=== PATIENT | female | born 2000 | race Caucasian/White ===

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

== ENCOUNTER 2018-04-19 17:13 | Emergency (ER) | payer OTHER ==
[~2018-04-19] VITALS: Ht 167.6 cm; Wt 75.0 kg
[~2018-04-19 17:13] MED LIST: ALEV220C2 PO; BACT800T5 PO; NORCOTAB PO
[2018-04-19] MEDS ORDERED: SUDA30TA8 PO (19:26)
[2018-04-19] MEDS ORDERED: FLON1SPR NARES (19:26)
[2018-04-19] MEDS ORDERED: MUCI600T37 PO (19:26)
[2018-04-19 19:42] VITALS: BP 127/85
== END 2018-04-19 19:42 | disposition home or self-care (01) ==
LOC: M ED 17:13
DX: H65.03 Acute serous otitis media, bilateral (principal); J30.9 Allergic rhinitis, unspecified

== ENCOUNTER 2018-07-29 13:22 | Emergency (ER) | payer OTHER ==
[~2018-07-29] VITALS: Ht 165.1 cm; Wt 72.7 kg
[~2018-07-29 13:22] MED LIST changes: +FLON1SPR NARES; +HYDR-3715 PO; +MUCI600T37 PO; -NORCOTAB PO; +SUDA30TA8 PO
--- NOTE | 2018-07-29 14:51 | REP ---
Right hip: Single view. History: Right hip pain. Findings: AP view of the right hip is compared to the frog-leg view obtained as part of the femur series. Bones, joints, and soft tissues are radiographically unremarkable. Femoral head is smooth and rounded and hip joint spaces preserved. Impression: Negative radiograph of the right hip. Electronically Signed by Gurdeep Palomino MD 07/29/2018 02:43 P
--- NOTE | 2018-07-29 14:59 | REP ---
Right femur: Three views. History: Right hip pain. Findings: AP and lateral views of the distal femur and AP and frog-leg views of the proximal femur are presented. These demonstrate normal bones, joints, and soft tissues. Impression: Normal radiographs of the right femur. Electronically Signed by Gurdeep Palomino MD 07/29/2018 08:06 P
[2018-07-29] MEDS ORDERED: IBUP-359 PO (15:00)
[2018-07-29 15:20] VITALS: BP 127/79
== END 2018-07-29 15:20 | disposition home or self-care (01) ==
LOC: M ED 13:22
DX: S70.01XA Contusion of right hip, initial encounter (principal); S80.01XA Contusion of right knee, initial encounter; W01.0XXA Fall on same level from slipping, tripping and stumbling without subsequent striking against object, initial encounter; Y92.512 Supermarket, store or market as the place of occurrence of the external cause; Y99.0 Civilian activity done for income or pay

== ENCOUNTER 2018-10-10 18:14 | Emergency (ER) | payer OTHER, SELFPAY ==
[~2018-10-10] VITALS: Ht 165.1 cm; Wt 77.3 kg
[~2018-10-10 18:14] MED LIST changes: +IBUP-359 PO
[2018-10-10] MEDS ORDERED: ADVI100T PO (18:20)
[2018-10-10 20:27] VITALS: BP 139/90
== END 2018-10-10 20:32 | disposition home or self-care (01) ==
LOC: M ED 18:14
DX: S09.90XA Unspecified injury of head, initial encounter (principal); W10.8XXA Fall (on) (from) other stairs and steps, initial encounter; Y92.89 Other specified places as the place of occurrence of the external cause; F17.200 Nicotine dependence, unspecified, uncomplicated; Z79.1 Long term (current) use of non-steroidal anti-inflammatories (NSAID)

== ENCOUNTER 2019-04-13 22:41 | Emergency (ER) | payer SELFPAY ==
[~2019-04-13] VITALS: Ht 165.1 cm; Wt 77.3 kg
[2019-04-13 22:41] VITALS: BP 144/85
[~2019-04-13 22:41] MED LIST changes: +ADVI100T PO
== END 2019-04-14 00:12 | disposition left against medical advice (07) ==
LOC: M ED 22:41
DX: Z53.21 Procedure and treatment not carried out due to patient leaving prior to being seen by health care provider (principal)

== ENCOUNTER 2019-05-21 22:09 | Emergency (ER) | payer SELFPAY ==
[~2019-05-21] VITALS: Ht 167.6 cm; Wt 83.5 kg
[2019-05-21 22:10] VITALS: BP 134/83
[2019-05-21] MEDS ORDERED: IBUPROFEN 600 MG TAB PO ONE (22:45)
[2019-05-21 23:00] LABS: INFLUENZA A AMPLIFICATION NEGATIVE (NEGATIVE); INFLUENZA B AMPLIFICATION NEGATIVE (NEGATIVE)
== END 2019-05-21 23:25 | disposition home or self-care (01) ==
LOC: M ED 22:09
DX: J02.9 Acute pharyngitis, unspecified (principal); B34.9 Viral infection, unspecified; Z20.89 Contact with and (suspected) exposure to other communicable diseases

== ENCOUNTER 2019-06-14 21:44 | Emergency (ER) | payer OTHER, SELFPAY ==
[~2019-06-14] VITALS: Ht 167.6 cm; Wt 84.5 kg
[2019-06-14 22:47] LABS: INFLUENZA A AMPLIFICATION NEGATIVE (NEGATIVE); INFLUENZA B AMPLIFICATION POSITIVE (NEGATIVE)
[2019-06-15] MEDS ORDERED: ACETAMINOPHEN 325 MG TAB PO ONE (01:15)
[2019-06-15] MEDS ORDERED: IBUPROFEN 600 MG TAB PO ONE (01:15)
[2019-06-15 01:16] VITALS: BP 140/87
== END 2019-06-15 01:46 | disposition home or self-care (01) ==
LOC: M ED 21:44
DX: J10.1 Influenza due to other identified influenza virus with other respiratory manifestations (principal); F17.200 Nicotine dependence, unspecified, uncomplicated

== ENCOUNTER → 2020-09-11 | Outpatient (CLI) | payer SELFPAY | LOC: M LABSMTC 09:56 | PROVIDERS: ATTEND Pediatrics | DX: Z20.822 Contact with and (suspected) exposure to COVID-19 (principal) ==

== ENCOUNTER → 2020-11-19 | Outpatient (REF) | payer OTHER | LOC: M SFHCPLAZ 13:17 | PROVIDERS: ATTEND Family Medicine | DX: Z12.4 Encounter for screening for malignant neoplasm of cervix (principal) ==

== ENCOUNTER 2021-08-30 20:54 | Emergency (ER) | payer OTHER ==
[~2021-08-30] VITALS: Ht 170.2 cm; Wt 75.0 kg
[2021-08-30 20:55] VITALS: BP 136/96
[2021-08-30] MEDS ORDERED: FLUO20CA22 (21:02)
[2021-08-30] MEDS ORDERED: BUPR150T12 (21:02)
== END 2021-08-31 01:48 | disposition home or self-care (01) ==
LOC: M ED 20:54
DX: S93.402A Sprain of unspecified ligament of left ankle, initial encounter (principal); X50.1XXA Overexertion from prolonged static or awkward postures, initial encounter; Y92.89 Other specified places as the place of occurrence of the external cause; Y93.9 Activity, unspecified; Y99.9 Unspecified external cause status; F17.200 Nicotine dependence, unspecified, uncomplicated

== ENCOUNTER 2022-10-29 10:56 | Emergency (ER) | payer OTHER ==
[~2022-10-29] VITALS: Ht 167.6 cm; Wt 92.2 kg
[~2022-10-29 10:56] MED LIST changes: +BUPR150T12; +FLUO20CA22
[2022-10-29 11:47] LABS: AMORPHOUS SEDIMENT SMALL (NEGATIVE); APPEARANCE, URINE CLOUDY (CLEAR); BACTERIA, URINE AUTO NEGATIVE (NEGATIVE); BILIRUBIN, URINE AUTO NEGATIVE (NEGATIVE); BLOOD, URINE BLOOD NEGATIVE (NEGATIVE); COLOR, URINE AMBER (YELLOW); GLUCOSE, URINE (UA) AUTO NEGATIVE (NEGATIVE); KETONE, URINE AUTO NEGATIVE (NEGATIVE); LEUKOCYTE ESTERASE, URINE AUTO 1+ (NEGATIVE); MUCUS, URINE SMALL (NEGATIVE); NITRITE, URINE AUTO NEGATIVE (NEGATIVE); PROTEIN, URINE AUTO 1+ mg/dL (NEGATIVE); RBC, URINE AUTO 4 /HPF (0-3); SPECIFIC GRAVITY URINE AUTO 1.028 (1.002-1.035); SQUAMOUS EPITHELIAL CELL UR AU 18 /HPF (0-6); WBC, URINE AUTO 11 /HPF (0-3)
[2022-10-29 12:08] LABS: HEMATOCRIT 44.9 % (36.0-47.0); HEMOGLOBIN 15.2 g/dl (12.0-15.5); MEAN CORPUSCULAR HEMOGLOBIN 31.2 pg (27.0-33.0); MEAN CORPUSCULAR HGB CONC 33.9 g/dl (32.0-36.5); MEAN CORPUSCULAR VOLUME 92.2 fl (80.0-96.0); PLATELET COUNT, AUTOMATED 227 10^3/uL (150-450); RED BLOOD COUNT 4.87 10^6/uL (4.00-5.40); WHITE BLOOD COUNT 8.5 10^3/uL (4.0-10.0)
[2022-10-29 12:41] LABS: BLOOD UREA NITROGEN 7 MG/DL (9-23); CALCIUM LEVEL 8.8 MG/DL (8.5-10.1); CARBON DIOXIDE LEVEL 25 MMOL/L (20-31); CHLORIDE LEVEL 107 MMOL/L (98-107); CREATININE FOR GFR 0.57 MG/DL (0.55-1.30); GLOMERULAR FILTRATION RATE > 60.0 (>60); GLUCOSE, FASTING 100 MG/DL (60-100); POTASSIUM SERUM 4.1 MMOL/L (3.5-5.1); SODIUM LEVEL 139 MMOL/L (136-145)
[2022-10-29 12:49] LABS: HCG, SERUM QUALITATIVE POSITIVE (NEGATIVE)
[2022-10-29 13:38] LABS: HCG, SERUM QUANTITATIVE 63148.3 MIU/ML (<4.2)
[2022-10-29] MEDS ORDERED: ONDA4TAB6 PO (14:42)
[2022-10-29 15:04] VITALS: BP 140/82; TEMP 98.8; O2SAT 96
== END 2022-10-29 15:06 | disposition home or self-care (01) ==
LOC: M ED 10:56
DX: O26.891 Other specified pregnancy related conditions, first trimester (principal); Z3A.01 Less than 8 weeks gestation of pregnancy; O99.331 Smoking (tobacco) complicating pregnancy, first trimester

== ENCOUNTER → 2022-12-02 | Outpatient (CLI) | payer OTHER ==
[~2022-12-02] MED LIST changes: +ONDA4TAB6 PO
[2022-12-02 17:27] LABS: HEMATOCRIT 44.7 % (36.0-47.0); HEMOGLOBIN 14.9 g/dl (12.0-15.5); MEAN CORPUSCULAR HEMOGLOBIN 31.4 pg (27.0-33.0); MEAN CORPUSCULAR HGB CONC 33.3 g/dl (32.0-36.5); MEAN CORPUSCULAR VOLUME 94.1 fl (80.0-96.0); PLATELET COUNT, AUTOMATED 255 10^3/uL (150-450); RED BLOOD COUNT 4.75 10^6/uL (4.00-5.40); WHITE BLOOD COUNT 9.9 10^3/uL (4.0-10.0)
[2022-12-02 18:18] LABS: HIV 1&2 SCREEN NEGATIVE (NEGATIVE)
[2022-12-02 18:27] LABS: HEPATITIS C VIRUS ABY INDEX 0.13 INDEX (<0.8)
[2022-12-02 19:32] LABS: GC DNA AMPLIFICATION NEGATIVE (NEGATIVE)
== END ==
LOC: M PLALAB 16:10
PROVIDERS: ATTEND Advanced Practice Midwife
DX: Z34.01 Encounter for supervision of normal first pregnancy, first trimester (principal)

== ENCOUNTER → 2022-12-31 | Outpatient (CLI) | payer OTHER | LOC: M WHC 14:22 | PROVIDERS: ATTEND Obstetrics & Gynecology | DX: Z34.92 Encounter for supervision of normal pregnancy, unspecified, second trimester (principal); Z53.9 Procedure and treatment not carried out, unspecified reason ==

== ENCOUNTER → 2022-12-31 | Outpatient (CLI) | payer OTHER | LOC: M PLALAB 14:29 | PROVIDERS: ATTEND Obstetrics & Gynecology | DX: Z34.92 Encounter for supervision of normal pregnancy, unspecified, second trimester (principal); Z3A.16 16 weeks gestation of pregnancy ==

== ENCOUNTER → 2023-01-30 | Outpatient (CLI) | payer OTHER | LOC: M RAD 13:28 | PROVIDERS: ATTEND Physician Assistant Medical | DX: S99.911A Unspecified injury of right ankle, initial encounter (principal); X58.XXXA Exposure to other specified factors, initial encounter; Y92.9 Unspecified place or not applicable; Y93.9 Activity, unspecified; Y99.9 Unspecified external cause status ==

== ENCOUNTER → 2023-02-02 | Outpatient (CLI) | payer OTHER | LOC: M WHC 13:09 | PROVIDERS: ATTEND Obstetrics & Gynecology | DX: Z34.92 Encounter for supervision of normal pregnancy, unspecified, second trimester (principal); Z3A.20 20 weeks gestation of pregnancy ==

== ENCOUNTER → 2023-04-14 | Outpatient (CLI) | payer OTHER | LOC: M LAB 07:49 | PROVIDERS: ATTEND Obstetrics & Gynecology | DX: R73.09 Other abnormal glucose (principal) ==

== ENCOUNTER → 2023-05-21 | Outpatient (CLI) | payer OTHER | LOC: M WHC 08:42 | PROVIDERS: ATTEND Obstetrics & Gynecology | DX: O24.415 Gestational diabetes mellitus in pregnancy, controlled by oral hypoglycemic drugs (principal); Z3A.36 36 weeks gestation of pregnancy ==

== ENCOUNTER → 2023-05-21 | Outpatient (REF) | payer OTHER ==
[~2023-05-21] MED LIST changes: +METF-838; +PRENTAB9 PO
== END ==
LOC: M SFHCWAGY 12:51
PROVIDERS: ATTEND Advanced Practice Midwife
DX: Z36.89 Encounter for other specified antenatal screening (principal); Z3A.00 Weeks of gestation of pregnancy not specified

== ENCOUNTER 2023-05-25 23:03 | Outpatient (CLI) | payer OTHER ==
[~2023-05-25] VITALS: Ht 160 cm; Wt 101.1 kg
[~2023-05-25 23:03] MED LIST changes: -METF-838; -PRENTAB9 PO
[2023-05-25] MEDS ORDERED: METF-838 (23:23)
[2023-05-25] MEDS ORDERED: PRENTAB9 PO (23:23)
[2023-05-25] MEDS ORDERED: HOME MED LIST COMPLETE! XX SCH (23:25)
[2023-05-25 23:28] VITALS: BP 167/107
[2023-05-25 23:56] VITALS: BP 136/94
[2023-05-26 01:00] VITALS: BP 134/96
== END 2023-05-26 02:04 | disposition home or self-care (01) ==
LOC: M LDO 23:03
PROVIDERS: ATTEND Obstetrics & Gynecology
DX: O47.03 False labor before 37 completed weeks of gestation, third trimester (principal); Z3A.36 36 weeks gestation of pregnancy; O24.415 Gestational diabetes mellitus in pregnancy, controlled by oral hypoglycemic drugs; O99.343 Other mental disorders complicating pregnancy, third trimester; F41.8 Other specified anxiety disorders
CPT/HCPCS: 59025; G0463

== ENCOUNTER 2023-06-08 16:18 | Inpatient (IN) | payer OTHER ==
[~2023-06-08] VITALS: Ht 162.6 cm; Wt 99.0 kg
[2023-06-08] VITALS (11 sets, daily range): BP systolic 140–205; BP diastolic 81–96
[~2023-06-08 16:18] MED LIST changes: +METF-838; +PRENTAB9 PO
[2023-06-08] MEDS ORDERED: HOME MED LIST COMPLETE! XX SCH (17:00)
[2023-06-08] MEDS: LACTATED RINGER'S 1000 ML IV STA (17:21)
[2023-06-08] MEDS ORDERED: LR 1,000 ML IV SCH (17:25)
[2023-06-08] MEDS ORDERED: OXYTOCIN DRIP 30 UNITS in IV 1 EA IV PRN (17:25)
[2023-06-08] MEDS ORDERED: CARBOPROST TROMETHAMINE 250 MCG/ML AMP IM PRN (17:25)
[2023-06-08] MEDS ORDERED: TRANEXAMIC ACID INJection 1,000 MG in NS 100 ML IV PRN (17:25)
[2023-06-08 18:56] LABS: MEAN CORPUSCULAR HEMOGLOBIN 31.2 pg (27.0-33.0); MEAN CORPUSCULAR HGB CONC 34.1 g/dl (32.0-36.5); MEAN CORPUSCULAR VOLUME 91.5 fl (80.0-96.0); PLATELET COUNT, AUTOMATED 203 10^3/uL (150-450); RED BLOOD COUNT 4.81 10^6/uL (4.00-5.40); WHITE BLOOD COUNT 15.7 10^3/uL (4.0-10.0)
[2023-06-08] MEDS ORDERED: OXYTOCIN 30UNITS IN 0.9% NaCl 500ML IV BAG As Ordered ONE (19:34)
[2023-06-08] MEDS ORDERED: ONDANSETRON 4MG 2ML VIAL As Ordered ONE (20:16)
[2023-06-08] MEDS: ONDANSETRON 4MG 2ML VIAL IV ONE (20:19)
[2023-06-08] MEDS: LIDOCAINE 1% MDV 20ML VIAL INFIL PRN (21:53)
[2023-06-08] MEDS ORDERED: DOCUSATE SODIUM 100MG CAPSULE PO PRN (22:10)
[2023-06-08] MEDS ORDERED: ONDANSETRON 4MG 2ML VIAL IV PRN (22:10)
[2023-06-08] MEDS ORDERED: ACETAMINOPHEN TAB 650MG DOSE (2X325MG) PO PRN (22:10)
[2023-06-08] MEDS: LR 1,000 ML IV SCH (22:10)
[2023-06-08] MEDS ORDERED: IBUPROFEN 800 MG TAB PO PRN (22:10)
[2023-06-08] MEDS ORDERED: ACETAMINOPHEN 500 MG TAB PO PRN (22:10)
[2023-06-08] MEDS ORDERED: ANUSOL HC CREAM 30GM TOP PRN (22:10)
[2023-06-08] MEDS ORDERED: DIBUCAINE 1% OINTMENT 30GM TOP PRN (22:10)
[2023-06-08] MEDS ORDERED: IBUPROFEN 600MG TAB PO PRN (22:10)
[2023-06-08] MEDS ORDERED: RHOGAM 300MCG (1500IU) INJ IM SCH (22:10)
[2023-06-08] MEDS: METHYLERGONOVINE MALEATE 0.2MG/ML 1ML VIAL IM PRN (23:14)
[2023-06-08] MEDS: OXYTOCIN DRIP 30 UNITS in IV 1 EA IV SCH (23:28)
[2023-06-09 00:45] VITALS: BP 138/82; O2SAT 98
[2023-06-09 06:00] VITALS: BP 132/84; O2SAT 97
[2023-06-09] MEDS ORDERED: PRENATAL VITAMINS CHEWABLE TABLET PO SCH (09:00)
[2023-06-09] MEDS: PRENATAL VITAMINS CHEWABLE TABLET PO SCH (10:15)
[2023-06-09 18:00] VITALS: BP 133/84; O2SAT 100
[2023-06-10 06:00] VITALS: BP 144/86; O2SAT 99
[2023-06-10] MEDS: MEASLES,MUMPS,RUBELLA VACCINE INJ (MMR-II) SC.IMMUN ONE (08:16)
[2023-06-10] MEDS ORDERED: ACET-683 PO (08:51)
[2023-06-10] MEDS ORDERED: IBUP-1022 PO (08:51)
[2023-06-10] MEDS ORDERED: COLA100C5 PO (08:51)
== END 2023-06-10 12:40 | disposition home or self-care (01) | DRG 560 ==
LOC: M LDO 16:18 → M LDI 17:27 → M OBS 06-09 00:35
PROVIDERS: ADMIT Obstetrics & Gynecology; ATTEND Obstetrics & Gynecology
PROC: 10E0XZZ Delivery of Products of Conception, External Approach (ICD-10-PCS; principal; 2023-06-08)
PROC: 0KQM0ZZ Repair Perineum Muscle, Open Approach (ICD-10-PCS; 2023-06-08)
DX: O24.425 Gestational diabetes mellitus in childbirth, controlled by oral hypoglycemic drugs (principal); O70.1 Second degree perineal laceration during delivery; Z3A.38 38 weeks gestation of pregnancy; Z37.0 Single live birth

== ENCOUNTER → 2023-11-30 | Outpatient (REF) | payer OTHER ==
[~2023-11-30] MED LIST changes: +ACET-683 PO; +COLA100C5 PO; +FLUO-365; -FLUO20CA22; +IBUP-1022 PO; +ONDA-282 PO; -ONDA4TAB6 PO
[2023-11-30 17:09] LABS: Trichomonas vaginalis (AMP) NOT DETECTED (NEGATIVE)
[2023-11-30 17:33] LABS: GC DNA AMPLIFICATION NEGATIVE (NEGATIVE)
[2023-12-02 14:43] LABS: HPV APTIMA Not Detected (Not Detected)
== END ==
LOC: M SFHCWAGY 14:58
PROVIDERS: ATTEND Obstetrics & Gynecology
DX: Z12.4 Encounter for screening for malignant neoplasm of cervix (principal)

== ENCOUNTER → 2024-01-18 | Outpatient (CLI) | payer OTHER | LOC: M WUC 12:55 | PROVIDERS: ATTEND Nurse Practitioner Family | DX: J06.9 Acute upper respiratory infection, unspecified (principal); R05.9 Cough, unspecified ==